=== PATIENT | male | born 1990 | race Caucasian/White ===

== ENCOUNTER 2020-04-30 19:09 | Emergency (ER) | payer BC, OTHER ==
[2020-04-30] MEDS ORDERED: Lidocaine 1% 10 ML MDV INJECT ONE (19:24)
[2020-04-30] MEDS ORDERED: Bupivacaine 0.5% 10 ML SDV INJECT ONE (19:24)
--- NOTE | 2020-04-30 19:50 | EDM.PDOC ---
ED HPI GENERAL MEDICAL PROBLEM - General Chief Complaint: Laceration Stated Complaint: CUT THUMB ON LEFT HAND Time Seen by Provider: 04/30/20 19:19 Source of Information: Reports: Patient History Limitations: Reports: No Limitations - History of Present Illness INITIAL COMMENTS - FREE TEXT/NARRATIVE: Patient is a 30-year-old male who presents to the emergency department with co mplaints of a laceration to the dorsal aspect of his left thumb through the fingernail bed. States he was cutting a piece of plastic with an [employer] knife and the knife slipped. His last tetanus vaccination was about 5 years ago. - Related Data Allergies Allergy/AdvReac Type Severity Reaction Status Date / Time No Known Allergies Allergy Verified 04/30/20 19:22 Home Meds: Home Meds . [No Known Home Meds] 04/30/20 [History] Past Medical History - Past Health History Medical/Surgical History: Denies Medical/Surgical History Endocrine/Metabolic History: Reports: Obesity/BMI 30+ - Infectious Disease History Infectious Disease History: Reports: None Social & Family History - Tobacco Use Smoking Status *Q: Never Smoker - Caffeine Use Caffeine Use: Reports: Energy Drinks, Soda - Recreational Drug Use Recreational Drug Use: No ED ROS GENERAL - Review of Systems Review Of Systems: Comprehensive ROS is negative, except as noted in HPI. ED EXAM, SKIN/RASH Exam: See Below Exam Limited By: No Limitations General Appearance: Alert, WD/WN, No Apparent Distress Respiratory/Chest: No Respiratory Distress, Lungs Clear, Normal Breath Sounds, No Accessory Muscle Use, Chest Non-Tender Cardiovascular: Normal Peripheral Pulses, Regular Rate, Rhythm, No Edema, No Gallop, No JVD, No Murmur, No Rub Skin: Other (1.5 cm horizontal laceration through the nailbed of the left thumb. 2 cm superficial skin avulsion lateral to the left nail. Tissue overlying the skin avulsion is white and nonviable.) ED SKIN PROCEDURES - Laceration/Wound Repair Left Digit - 1st (Thumb) Appearance: Subcutaneous Distal NVT: Neuro & Vascular Intact, No Tendon Injury Anesthetic Type: Digital Local Anesthesia - Lidocaine (Xylocaine): 1% Plain Local Anesthesia - Bupivicaine (Marcaine): 0.5% Plain Local Anesthetic Volume: 4cc Skin Prep: Providone-Iodine (Betadine), Saline Exploration/Debridement/Repair: Wound Explored, Minimal Debridement (Nonviable tissue overlying the skin avulsion debrided.), No Foreign Material Found Closed with: Sutures Lac/Wound length In cm: 3.5 Suture Size: 4-0 # of Sutures: 3 Suture Type: Nylon, Interrupted, Other (through the nail) Sterile Dressing Applied: Nurse Tetanus Status Addressed: Yes Complications: No Course - Vital Signs Last Recorded V/S: Last Vital Signs Temp 96 F L 04/30/20 19:19 Pulse 90 04/30/20 19:19 Resp 16 04/30/20 19:19 BP 177/106 H 04/30/20 19:19 Pulse Ox 98 04/30/20 19:19 - Orders/Labs/Meds Meds: Medications Discontinued Medications Generic Name Dose Route Start Last Admin Trade Name Tiffany PRN Reason Stop Dose Admin Bupivacaine HCl 10 ml 04/30/20 19:24 04/30/20 19:34 Sensorcaine-Mpf 0.5% INJECT 04/30/20 19:25 10 ml ONETIME ONE Administration Lidocaine HCl 10 ml 04/30/20 19:24 04/30/20 19:34 Xylocaine 1% INJECT 04/30/20 19:25 10 ml ONETIME ONE Administration Departure - Departure Time of Disposition: 20:46 Disposition: Home, Self-Care 01 Condition: Good Clinical Impression: Laceration - Discharge Information *PRESCRIPTION DRUG MONITORING PROGRAM REVIEWED*: No *COPY OF PRESCRIPTION DRUG MONITORING REPORT IN PATIENT ZEE: No Instructions: Sutures, Stephan, or Adhesive Wound Closure, [id number], Laceration Care, Adult, [id number] Referrals: PCP,None [Primary Care Provider] - Forms: ED Department Discharge Additional Instructions: You were seen in the emergency department today for a laceration to your left thumb. The wound was cleansed and closed with 3 sutures. These should stay intact for 7 days. After that time they may be removed in the clinic by a nurse. Keep the wound clean, dry, and covered. Wash with normal soap and water twice daily. Do not submerge the wound in water. Watch for signs of infection including increased redness, swelling, or purulent drainage. If these should occur, you should be seen either in the clinic or in the emergency department as antibiotic treatment may be needed. Return to the ER as needed. Sepsis Event Note (ED) - Evaluation Sepsis Screening Result: No Definite Risk - Focused Exam Vital Signs: Vital Signs Temp Pulse Resp BP Pulse Ox 04/30/20 19:19 96 F L 90 16 177/106 H 98
== END 2020-04-30 21:18 | disposition home or self-care (01) ==
LOC: JD.ED 19:09
DX: S61.012A Laceration without foreign body of left thumb without damage to nail, initial encounter (principal); E66.9 Obesity, unspecified; W26.9XXA Contact with unspecified sharp object(s), initial encounter
CPT/HCPCS: 12002; 99282; J2001; J3490